=== PATIENT | male | born 1975 | race African-American/Black ===

== ENCOUNTER 2020-12-27 08:44 | Emergency (ER) | payer OTHER ==
[~2020-12-27] VITALS: Ht 167.6 cm; Wt 64.9 kg
== END 2020-12-27 14:03 | disposition home or self-care (01) ==
LOC: ER 08:44
DX: R10.9 Unspecified abdominal pain (principal); K59.00 Constipation, unspecified

== ENCOUNTER → 2021-03-09 07:23 | Outpatient (CLI) | payer OTHER | END | disposition home or self-care (01) | LOC: LAB 07:23 | PROVIDERS: ATTEND Specialist | DX: J45.998 Other asthma (principal); E03.8 Other specified hypothyroidism; E11.21 Type 2 diabetes mellitus with diabetic nephropathy; N39.8 Other specified disorders of urinary system; N40.1 Benign prostatic hyperplasia with lower urinary tract symptoms; D40.0 Neoplasm of uncertain behavior of prostate; E78.2 Mixed hyperlipidemia; E11.65 Type 2 diabetes mellitus with hyperglycemia; Z12.11 Encounter for screening for malignant neoplasm of colon; D64.89 Other specified anemias; D68.8 Other specified coagulation defects; K75.81 Nonalcoholic steatohepatitis (NASH); A63.8 Other specified predominantly sexually transmitted diseases ==

== ENCOUNTER 2021-03-09 09:31 | Outpatient (CLI) | payer OTHER | END 2021-03-09 10:00 | disposition home or self-care (01) | LOC: SONOGRAMA 09:31 | PROVIDERS: ATTEND Specialist | DX: E03.8 Other specified hypothyroidism (principal); I10 Essential (primary) hypertension; E04.1 Nontoxic single thyroid nodule ==

== ENCOUNTER 2021-03-23 08:28 | Outpatient (CLI) | payer OTHER | END 2021-03-23 08:59 | disposition home or self-care (01) | LOC: LAB 08:28 | PROVIDERS: ATTEND Specialist | DX: D68.8 Other specified coagulation defects (principal); D64.89 Other specified anemias; D68.59 Other primary thrombophilia; E72.12 Methylenetetrahydrofolate reductase deficiency ==

== ENCOUNTER 2021-04-16 07:53 | Outpatient (CLI) | payer OTHER | END 2021-04-16 07:58 | disposition home or self-care (01) | LOC: SONOGRAMA 07:53 | PROVIDERS: ATTEND Internal Medicine Gastroenterology | DX: K76.89 Other specified diseases of liver (principal); R10.84 Generalized abdominal pain ==

== ENCOUNTER 2021-05-18 07:32 | Outpatient (CLI) | payer OTHER | END 2021-05-18 07:51 | disposition home or self-care (01) | LOC: TOM 07:32 | PROVIDERS: ATTEND Internal Medicine Gastroenterology | DX: K75.3 Granulomatous hepatitis, not elsewhere classified (principal); R10.84 Generalized abdominal pain ==

== ENCOUNTER 2021-06-28 07:20 | Outpatient (CLI) | payer OTHER | END 2021-06-28 08:42 | disposition home or self-care (01) | LOC: TOM 07:20 → SONOGRAMA 07:20 | PROVIDERS: ATTEND Internal Medicine Gastroenterology | DX: R10.84 Generalized abdominal pain (principal) ==

== ENCOUNTER 2021-07-02 07:04 | Outpatient (CLI) | payer OTHER | END 2021-07-02 07:44 | disposition home or self-care (01) | LOC: LAB 07:04 | PROVIDERS: ATTEND Internal Medicine Gastroenterology | DX: M05.80 Other rheumatoid arthritis with rheumatoid factor of unspecified site (principal); M32.8 Other forms of systemic lupus erythematosus ==

== ENCOUNTER 2021-07-04 07:40 | Outpatient (CLI) | payer OTHER | END 2021-07-04 07:56 | disposition home or self-care (01) | LOC: LAB 07:40 | PROVIDERS: ATTEND Internal Medicine Hematology & Oncology | DX: D68.61 Antiphospholipid syndrome (principal); D68.312 Antiphospholipid antibody with hemorrhagic disorder; R76.0 Raised antibody titer ==

== ENCOUNTER 2021-09-13 07:53 | Outpatient (CLI) | payer OTHER | END 2021-09-13 08:07 | disposition home or self-care (01) | LOC: LAB 07:53 | PROVIDERS: ATTEND Internal Medicine Hematology & Oncology | DX: D70.8 Other neutropenia (principal); K75.3 Granulomatous hepatitis, not elsewhere classified; K29.40 Chronic atrophic gastritis without bleeding; D86.89 Sarcoidosis of other sites ==